=== PATIENT | female | born 1970 | race Caucasian/White ===

== ENCOUNTER 2023-09-12 11:24 | Emergency (ER) | payer OTHER, SELFPAY ==
--- NOTE | 2023-09-12 11:36 | ED.URI ---
HPI - URI/Sore Throat General Chief Complaint: Upper Respiratory Infection Stated Complaint: Chest Pain, Short of Breath, Congestion, Body Ache Time Seen by Provider: 09/12/23 11:38 Source: patient, RN notes reviewed and old records reviewed Mode of arrival: ambulatory Limitations: no limitations History of Present Illness HPI Narrative: 52 year old female who presents to express care with complaints of cough,congestion with some yellow mucous, body aches, chills and sweats but unknown if measurable fever,headache, denies any shortness of breath or chest pain. Patient became faint in triage area, taken by wheelchair to room 1 and placed on stretcher, blood sugar 149,initial blood pressure 86/55, reports that she has not eaten anything this morning but took 2 sips of a monster drink and has been drinking some water. Patient reports that her mother was diagnosed with influenza A on Sunday and her grandson tested positive for strep throat yesterday. Patient reports that she just returned from cruise one week ago. Patient reports that she took DayQuil and used cough drops for her symptoms. Patient reports that there also was a girl who tested positive for COVID at work recently. After resting for a few minutes and sipping on water patient reports that she feels better, denies any present nausea with blood pressure 118/77. MD elicited complaint: cough and other (body aches, headache, chills and sweats, some nausea) Onset (ago): day(s) (yesterday at 1000) Pain scale (0-10): 5 Able to tolerate fluids by mouth: Yes Treatments prior to arrival: other (DayQuil and cough drops) Related Data Home Medications Medication Instructions Recorded Confirmed bupropion HCl 150 mg tablet,12 hr 150 mg PO DAILY 09/12/23 09/12/23 sustained-release omeprazole 20 mg capsule,delayed 20 mg PO DAILY 09/12/23 09/12/23 release Allergies Allergy/AdvReac Type Severity Reaction Status Date / Time No Known Allergies Allergy Other Uncoded 09/12/23 11:31 Review of Systems Review of Systems: CONSTITUTIONAL: Reports malaise, chills, sweats, unknown if measurable fever. EYES: Denies visual changes, redness, or discharge. ENT: Reports rhinorrhea, congestion,no sinus pain, no otalgia and no sore throat. CARDIOVASCULAR: Denies chest pain, palpitations, or edema. RESPIRATORY: Reports cough with production.? Denies dyspnea. GASTROINTESTINAL: Denies abdominal pain,reports some nausea when first arrived, none at discharge,no vomiting, diarrhea SKIN: Denies rash or itching. MUSCULOSKELETAL: Reports myalgia. NEUROLOGIC: Reports headache. All systems reviewed & are unremarkable except as noted in HPI and below PMFSH Past Medical History Medical History (Updated 09/12/23 @ 12:18 by Vijaya Martinez NP) Anxiety GERD (gastroesophageal reflux disease) Surgical History Surgical History (Updated 09/12/23 @ 12:05 by Vijaya Martinez NP) History of bilateral mastectomy Social History Social History (Updated 09/12/23 @ 12:06 by Vijaya Martinez NP) Smoking packs per day: 0.5 Smoking cigarettes per day: 10.0 Years smoked: 30 Smoking pack-years: 15.00 Smoking status: Current every day smoker Tobacco type: cigarettes Alcohol intake: current Alcohol use details: social Living arrangements: with family Gender identity (if verbalized by the patient): Female Comments At time of signature, agree with nursing past medical, surgical, social and family history. There is no relevant family history pertinent to the presenting complaint Exam Narrative: GENERAL: ill-appearing, well-nourished, and in no acute distress. HEAD: Normocephalic EYES: PERRLA, conjunctivae clear ENT: Nares clear, turbinates edematous and erythematous, clear discharge. Mucous membranes moist. TM pearly ruth with dull light reflex bilaterally; no tragal tenderness. Oropharynx erythematous without lesions. Tonsils not enlarged and without exudate, n
[2023-09-12 11:42] VITALS: BP 86/55; PULSE 70; RESP 16; TEMP 37.5; O2SAT 98
[2023-09-12 11:47] LABS: Glucose Point of Care 149 mg/dl (65-105)
[2023-09-12 12:08] VITALS: BP 118/77
== END 2023-09-12 12:20 | disposition home or self-care (01) ==
PROVIDERS: Emergency Provider Registered Nurse; PCP Nurse Practitioner Family
DX: B34.9 Viral infection, unspecified (principal); Z20.822 Contact with and (suspected) exposure to COVID-19; F17.210 Nicotine dependence, cigarettes, uncomplicated; K21.9 Gastro-esophageal reflux disease without esophagitis; F41.9 Anxiety disorder, unspecified
CPT/HCPCS: 82948; 87081; 87426; 87804; 87880; 99213; G0463